=== PATIENT | male | born 1970 | race Hispanic/Latino ===

== ENCOUNTER → 2020-06-12 | Day surgery (SDC) | payer OTHER ==
[2020-06-07 15:45] LABS: BLOOD UREA NITROGEN 15 mg/dL (7-26); BUN/CREATININE RATIO 13 (6-25); CALCIUM 9.3 mg/dL (8.4-10.2); CARBON DIOXIDE 25 mmol/L (22-29); CHLORIDE 105 mmol/L (98-107); CREATININE, SERUM 1.14 mg/dL (0.72-1.25); EST GLOMERULAR FILTRATION RATE > 60 ML/MIN (60-); GLUCOSE 181 mg/dL (74-118); SODIUM 140 mmol/L (136-145)
[~2020-06-12] MED LIST: ACETAMINOPHEN 1000 MG/100 ML IV ONE; BACITRACIN 50,000 UNIT VIAL ONE; BUPIVACAINE HCL 0.5% INJ 30 ML VIAL INJ ONE; CEFAZOLIN SOD 1 GM/NS 50ML 100 ML IV ONE; DEXAMETHASONE SOD PHOS INJ 4 MG/ML VIAL ONE; JARDIANCE25 MG PO; KETOROLAC TROMETHAMINE 30 MG/ML VIAL ONE; LIDOCAINE HCL 2% LOCAL INJ 5 ML SDV VIAL INJ ONE; LISINOPRIL10 MG PO; LOVASTATIN20 MG PO; NEOSTIGMINE 1 MG/ML 10ML VIAL ONE; ONDANSETRON HCL INJ 2MG/ML 2ML 2 MG/ML VIAL ONE; PROPOFOL IV EMULSION 10 MG/ML 20 ML VIAL ONE; SEVOFLURANE INHAL SOLN 250 ML PEN BTL ONE
[2020-06-12 10:20] VITALS: BP 114/79
--- NOTE | 2020-06-12 11:22 | Operative Report ---
DATE OF PROCEDURE: 06/12/2020 SURGEON: Debra Woods DPM [place] REPORTER: None. PREOPERATIVE DIAGNOSES: 1. Mass, soft tissue, left foot. 2. Pain in the lower extremity. POSTOPERATIVE DIAGNOSES: 1. Mass, soft tissue, left foot. 2. Pain in the lower extremity. PROCEDURE: Excision of mass, left foot, sent for pathology. HEMOSTASIS: Pneumatic ankle tourniquet. ESTIMATED BLOOD LOSS: Less than 10 mL. MATERIALS: A 2 x 2 allograft to prevent adhesions and to help the skin heal. COMPLICATIONS: None. CONDITION: Stable. PROCEDURE IN DETAIL: Under mild sedation, the patient was brought to the operating room, placed on the operating table in supine position. Following IV sedation, anesthesia was obtained with general anesthetic. At this point, the left foot was scrubbed, prepped, and draped in usual aseptic manner. The pneumatic ankle tourniquet was inflated to 250 mmHg and the leg was lowered to the table. Attention was then directed to the medial aspect of the left foot, where a curvilinear incision was made overlying the soft tissue mass. The mass measured approximately 5 cm in diameter. It was dissected down to the level of the mass. Utilizing a #15 blade and a bone rongeur, the soft tissue mass was removed. At this point, it was noted to be pasty in nature and appeared to be tophi. The area was then flushed with copious amount of normal irrigation. The mass was passed from the operating table and sent to pathology. A human allograft was then inserted into the area, where the skin was so thin from the mass that he could be at risk for necrosis of that area. The tourniquet was taken down. The skin good capillary tissue resolved to that area. The area was then closed closing the deepest layer with 4-0 Vicryl, then 4-0 nylon. Clean dressing was applied consisting of Adaptic ointment, 4x4s, Kerlix, and Adrian bandage. The tourniquet was deflated. There was noted to be hyperemic response to all the digits. The patient tolerated the procedure and anesthesia well without complications, was transported to recovery room with vital signs stable and vascular status intact to both feet. The patient will be discharged home when he meets criteria. He was given instructions to be partial weightbearing with the fracture boot and crutches. He will call the office if any questions, concerns, or new problems arise. CRISTY Lott/NETO /[id number]
== END | disposition home or self-care (01) ==
LOC: OR 06:53
PROVIDERS: ATTEND Podiatrist Foot & Ankle Surgery
DX: M79.9 Soft tissue disorder, unspecified (principal); I10 Essential (primary) hypertension; E11.9 Type 2 diabetes mellitus without complications; Z01.810 Encounter for preprocedural cardiovascular examination; Z01.812 Encounter for preprocedural laboratory examination; Z11.59 Encounter for screening for other viral diseases
CPT/HCPCS: 28104; 36415 ×2; 80048; 82948; 88305; 89060; 93005; J0131; J0690; J1885; J2001; J2405; J2704; J2710; Q4150; U0002; J1100

== ENCOUNTER 2022-03-14 13:39 | Emergency (ER) | payer OTHER ==
[~2022-03-14] VITALS: Ht 185.4 cm; Wt 100.8 kg
[~2022-03-14 13:39] MED LIST changes: -ACETAMINOPHEN 1000 MG/100 ML IV ONE; -BACITRACIN 50,000 UNIT VIAL ONE; -BUPIVACAINE HCL 0.5% INJ 30 ML VIAL INJ ONE; -CEFAZOLIN SOD 1 GM/NS 50ML 100 ML IV ONE; -DEXAMETHASONE SOD PHOS INJ 4 MG/ML VIAL ONE; -KETOROLAC TROMETHAMINE 30 MG/ML VIAL ONE; -LIDOCAINE HCL 2% LOCAL INJ 5 ML SDV VIAL INJ ONE; -NEOSTIGMINE 1 MG/ML 10ML VIAL ONE; -ONDANSETRON HCL INJ 2MG/ML 2ML 2 MG/ML VIAL ONE; -PROPOFOL IV EMULSION 10 MG/ML 20 ML VIAL ONE; -SEVOFLURANE INHAL SOLN 250 ML PEN BTL ONE
[2022-03-14] MEDS ORDERED: SODIUM CHLORIDE 0.9% 1000ML 1,000 ML IV STA (14:56)
[2022-03-14] MEDS ORDERED: ACETAMINOPHEN 325 MG TAB PO ONE (15:00)
[2022-03-14] MEDS ORDERED: KETOROLAC TROMETHAMINE 30 MG/ML VIAL IV ONE (15:00)
[2022-03-14] MEDS ORDERED: CEFTRIAXONE 1 GM VIAL IV ONE (15:00)
[2022-03-14] MEDS ORDERED: CEFTRIAXONE 1 GM VIAL ONE (15:27)
[2022-03-14] MEDS ORDERED: KETOROLAC TROMETHAMINE 30 MG/ML VIAL ONE (15:27)
[2022-03-14] MEDS ORDERED: ONDANSETRON HCL INJ 2MG/ML 2ML 2 MG/ML VIAL ONE (15:27)
[2022-03-14] MEDS ORDERED: SODIUM CHLORIDE 0.9% 1000ML 1,000 ML ONE (15:27)
[2022-03-14] MEDS ORDERED: ACETAMINOPHEN 325 MG TAB ONE (15:33)
[2022-03-14] MEDS ORDERED: OSELTAMIVIR PHO75 MG PO (15:51)
[2022-03-14] MEDS ORDERED: ACETAMINOPHEN500 MG PO (15:51)
[2022-03-14] MEDS ORDERED: IBUPROFEN200 MG PO (15:51)
== END 2022-03-14 16:00 | disposition home or self-care (01) ==
LOC: FSED 13:48
DX: R50.9 Fever, unspecified (principal); J10.1 Influenza due to other identified influenza virus with other respiratory manifestations; R11.2 Nausea with vomiting, unspecified; R00.0 Tachycardia, unspecified
CPT/HCPCS: 71046; 80053; 81003; 85025; 96374; 96375; 96376; 99283; J0696; J1885; J2405; J7030